=== PATIENT | male | born 1990 | race Caucasian/White ===

== ENCOUNTER 2016-08-15 08:34 | Emergency (ER) | payer OTHER ==
[2016-08-15 08:41] VITALS: TEMP 97.7
--- NOTE | 2016-08-15 08:57 | CPEKG ---
Heart Rate: 68 RR Interval: 882 P-R Interval: 168 QRSD Interval: 86 QT Interval: 408 QTC Interval: 434 P [place]: 37 QRS [place]: 75 T Wave [place]: 35 EKG Severity - ABNORMAL ECG - EKG Impression: SINUS RHYTHM EKG Impression: CONSIDER LEFT VENTRICULAR HYPERTROPHY EKG Impression: INFERIOR Q WAVES, PROBABLY NORMAL VARIATION EKG Impression: ST ELEV, PROBABLE NORMAL EARLY REPOL PATTERN Electronically Signed By: Claudia Man 15-Aug-2016 15:11:56
--- NOTE | 2016-08-15 09:12 | EDPHY ---
H & P Time Seen by Provider: 08/15/16 08:50 HPI/ROS: CHIEF COMPLAINT: Syncopal episode, forehead laceration HISTORY OF PRESENT ILLNESS: 26-year-old male presents to the emergency department by private vehicle after having a syncopal episode at home earlier this morning. Patient states that he felt fine when he went to sleep last night. He woke up this morning and had to go to the bathroom. He was sitting on the toilet and he states the next thing he knew he woke himself up on the ground. Thinks that he fell forward and hit his head on the bathtub. Complains of diffuse headache. He states he feels extremely tired. Denies neck or back pain. Denies chest pain or difficulty breathing. Denies any presyncopal symptoms prior to his fall. He does have a history of Crohn's disease although he does not currently have symptoms of Crohn's flare up. Denies bloody diarrhea. Denies abdominal pain. Denies injury to upper or lower extremities. He believes his tetanus shot is current. REVIEW OF SYSTEMS: Constitutional: No fever, no chills. Eyes: No double or blurry vision. ENT: No sore throat. Respiratory: No cough, no shortness of breath. Cardiac: No chest pain. Gastrointestinal: No abdominal pain, vomiting or diarrhea. Genitourinary: No dysuria. Musculoskeletal: No neck or back pain. Skin: Forehead laceration. No rashes. Neurological: headache. Past Medical/Surgical History: Crohn's disease, partial colon resection Social History: Single Smoking Status: Never smoked Physical Exam: General Appearance: Alert, no distress. Mentating normally and answering questions appropriately. Eyes: Pupils equal and round. Extraocular motions are all intact. ENT: Mouth: Mucous membranes moist. Respiratory: No wheezing, rhonchi, or rales, lungs are clear to auscultation. Cardiovascular: Regular rate and rhythm. Gastrointestinal: Abdomen is soft and nontender, no masses, no rebound or guarding, bowel sounds normal. Neurological: Alert and oriented x 3, cranial nerves II through XII grossly intact Skin: 1 cm laceration to the left anterior forehead just above the left eyebrow. Slow active bleeding noted. Warm and dry, no rashes. Musculoskeletal: Nontender to palpate along the cervical, thoracic or lumbar spine. Neck is supple. Extremities: Full range of motion and no peripheral edema. Psychiatric: Patient is oriented X 3, there is no agitation. Constitutional: Initial Vital Signs Temperature (C) 36.5 C 08/15/16 08:38 Heart Rate 77 08/15/16 08:38 Respiratory Rate 18 08/15/16 08:38 Blood Pressure 137/85 H 08/15/16 08:38 O2 Sat (%) 99 08/15/16 08:38 O2 Delivery Mode Room Air Allergies/Adverse Reactions: No Known Allergies Allergy (Unverified 08/15/16 08:37) Home Medications: Medication Instructions Recorded NK [No Known Home Meds] 08/15/16 Medical Decision Making - Diagnostics Imaging: Discussed imaging studies w/ yardage caller Radiologist, I viewed and interpreted images myself Procedures: Laceration repair. Verbal consent was obtained from the patient. The 1 cm laceration on the left anterior forehead was anesthetized using 1% lidocaine with epinephrine. The wound was irrigated with saline, draped and explored to its base with a gloved finger. There were no deep structures involved. The wound was repaired with 6 0 Prolene, 3 sutures. The wound repair was simple. The procedure was performed by myself. ED Course/Re-evaluation: 26-year-old male presents to the emergency department after having syncopal episode. The patient had positive loss of consciousness. He has diffuse headache. He feels extremely tired. I discussed the pros and cons of CT imaging of his brain including radiation exposure the patient agrees with CT scan. Laboratory studies are pending. Laboratory studies were within normal limits. EKG was normal. CT imaging of the brain revealed no evidence of bleed or skull fracture, however the patient did have a possible malformation in the right parietal region. Radiologist recommended obtaining either a CTA or MRI and MRA. Since his patient just had CT scan and he is only 26 years old, trying to minimize radiation exposure, therefore patient will have MRI and MRA of the brain to further evaluate possible malformation. 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 Patient was monitored throughout his stay in the emergency department. His vital signs remained stable. Was tolerating p.o. fluids. He was comfortable being discharged home. He was given primary care referral. Laceration was repaired, see procedure note. Differential Diagnosis: Syncope including but not limited to vasovagal syncope, arrhythmia, dehydration , and blood loss. Head injury including but not limited to concussion, skull fracture, intraparenchymal contusion, subarachnoid, subdural and epidural hematoma. - Data Points Laboratory Results: Laboratory Results 08/15/16 09:15 08/15/16 09:15 Medications Given: Discontinued Medications Lorazepam (Ativan Injection) 1 mg IVP EDNOW ONE Stop: 08/15/16 10:04 Last Admin: 08/15/16 10:17 Dose: 1 mg Departure - Departure Disposition: Home, Routine, Self-Care Clinical Impression: Forehead laceration Qualifiers: Encounter type: initial encounter Qualified Code(s): S01.81XA - Laceration without foreign body of other part of head, initial encounter Syncope Qualifiers: Syncope type: unspecified Qualified Code(s): R55 - Syncope and collapse Head injury Qualifiers: Encounter type: initial encounter Qualified Code(s): S09.90XA - Unspecified injury of head, initial encounter Condition: Good Instructions: Care For Your Stitches (ED), Laceration (ED), Syncope (ED), Head Injury (ED), Acute Wounds (ED) Additional Instructions: Wound Care Follow-Up: Removal of sutures in 5 days. Suture removal is complimentary in uncomplicated cases. Infection or abnormal findings would require reevaluation by the MD. In that case, you may be billed. Return if he notices any signs or symptoms of infection such as redness, swelling, increased pain, fever, purulent drainage. Referrals: Savanna Rasmussen MD [Medical Doctor] - 2-3 days, call for appt. (Primary care provider it solutions architect)
[2016-08-15 09:28] LABS: % IMMATURE GRANULYOCYTES 0.2 % (0.0-1.1); ABSOLUTE IMMATURE GRANULOCYTES 0.01 10^3/uL (0.00-0.10); ADD DIFF? NO; ADD MORPH? NO; ADD SCAN? NO; ATYPICAL LYMPHOCYTE FLAG 10 (0-99); FRAGMENT RBC FLAG 0 (0-99); HEMATOCRIT 47.4 % (40.0-51.0); HEMOGLOBIN 16.4 g/dL (13.7-17.5); LEFT SHIFT FLG 0 (0-99); LIPEMIA HEMOLYSIS FLAG 90 (0-99); MEAN CELL HEMOGLOBIN 31.7 pg (27.9-34.1); MEAN CELL HEMOGLOBIN CONCENTR. 34.6 g/dL (32.4-36.7); MEAN CELL VOLUME 91.5 fL (81.5-99.8); MEAN PLATELET VOLUME 10.2 fL (8.7-11.7); PLATELET CLUMPS FLAG 10 (0-99); PLATELET COUNT 136 10^3/uL (150-400); RED BLOOD CELL COUNT 5.18 10^6/uL (4.40-6.38); RED CELL DISTRIBUTION WIDTH 13.1 % (11.5-15.2)
[2016-08-15 09:38] LABS: ANION GAP 13 mEq/L (8-16); CALCIUM 9.4 mg/dL (8.5-10.4); CARBON DIOXIDE 23 mEq/l (22-31); CHLORIDE 104 mEq/L (97-110); CREATININE 0.8 mg/dL (0.7-1.3); GLOMERULAR FILTRATION RATE > 60; GLUCOSE 89 mg/dL (70-100); POTASSIUM 3.9 mEq/L (3.5-5.2); SODIUM 140 mEq/L (134-144)
[2016-08-15] MEDS ORDERED: LORazepam 2 MG/ML INJ IVP ONE (10:03)
[2016-08-15 10:05] VITALS: RESP 16; O2SAT 96
[2016-08-15 11:58] VITALS: BP 114/69; PULSE 74
== END 2016-08-15 12:18 | disposition home or self-care (01) ==
PROC: 0HQ1XZZ Repair Face Skin, External Approach (ICD-10-PCS; principal; 2016-08-15)
DX: S01.81XA Laceration without foreign body of other part of head, initial encounter (principal); R55 Syncope and collapse; W18.12XA Fall from or off toilet with subsequent striking against object, initial encounter; Y92.002 Bathroom of unspecified non-institutional (private) residence as the place of occurrence of the external cause
CPT/HCPCS: J2060